=== PATIENT | male | born 1945 | race Caucasian/White ===

== ENCOUNTER 2017-10-07 09:25 | Emergency (ER) | payer OTHER, MEDICAID ==
[~2017-10-07] VITALS: Ht 160 cm; Wt 84.8 kg
[~2017-10-07 09:25] MED LIST: ACETAMINOPHEN; CIP500 PO; CLA10 PO; COD; ECO81 PO; PRO40 PO; TERAZOSIN PO; ZOC10 PO
[2017-10-07 10:31] VITALS: BP 126/91; Ht 160 cm; Wt 84.8 kg
== END 2017-10-07 13:23 | disposition home or self-care (01) ==
LOC: ED 09:25
DX: B34.9 Viral infection, unspecified (principal); J45.909 Unspecified asthma, uncomplicated; E78.5 Hyperlipidemia, unspecified
CPT/HCPCS: 87804